=== PATIENT | female | born 2000 | race Caucasian/White ===

== ENCOUNTER → 2021-10-21 | Outpatient (CLI) | payer OTHER | LOC: RAD 16:30 | DX: M54.16 Radiculopathy, lumbar region (principal); R10.9 Unspecified abdominal pain; R07.9 Chest pain, unspecified; K21.9 Gastro-esophageal reflux disease without esophagitis; M48.061 Spinal stenosis, lumbar region without neurogenic claudication; M43.9 Deforming dorsopathy, unspecified | CPT/HCPCS: 72100 ==

== ENCOUNTER → 2021-10-28 | Outpatient (CLI) | payer OTHER | LOC: US 09:30 | DX: R10.11 Right upper quadrant pain (principal); R07.9 Chest pain, unspecified; K21.9 Gastro-esophageal reflux disease without esophagitis | CPT/HCPCS: 76705 ==